=== PATIENT | male | born 1970 | race Caucasian/White ===

== ENCOUNTER 2019-04-30 08:16 | Emergency (ER) | payer OTHER, SELFPAY ==
--- NOTE | ~2019-04-30 | XR_ITS ---
XR hand LT min 3V DATE: 04/30/2019 09:08 INDICATION: Left ear fell on top of him 3 days ago. TECHNIQUE: 3 views COMPARISON: None FINDINGS: No fracture or dislocation, periosteal reaction or bone destruction. IMPRESSION: Negative Reviewed, dictated and finalized at location B. [facility] IMPRESSION: Negative
[2019-04-30 08:49] VITALS: BP 116/83; PULSE 79; RESP 20; TEMP 36.7; O2SAT 97
--- NOTE | 2019-04-30 08:58 | ED.GENADULT ---
HPI - General Adult General Chief complaint: Extremity Injury, Upper Stated complaint: left hand injury Time Seen by Provider: 04/30/19 08:59 Source: patient Mode of arrival: ambulatory Limitations: no limitations History of Present Illness HPI narrative: 48-year-old male patient presents to the [facility] with complaints of left hand pain. Patient states that ladder collapsed on his hand about 3 days ago. Patient states he has been having pain to the left index, middle and ring finger. Specifically to the distal middle finger. Patient states he is able to make a fist but he has had a lot of pain and tenderness to the distal middle finger and hurts even when he tries to put his hand in his pocket. Related Data Allergies Allergy/AdvReac Type Severity Reaction Status Date / Time codeine Allergy Itching Verified 04/30/19 08:55 Review of Systems Review of Systems: Narrative: CONSTITUTIONAL: Denies fever, chills, or sweats. EYES: Denies visual changes, redness, or discharge. ENT: Denies rhinorrhea, congestion, sore throat, or otalgia. CARDIOVASCULAR: Denies chest pain, palpitations, or edema. RESPIRATORY: Denies cough or dyspnea. GASTROINTESTINAL: Denies abdominal pain, nausea, vomiting, or diarrhea. GENITOURINARY: Denies dysuria or hematuria. SKIN: Denies rash or itching. MUSCULOSKELETAL: Denies back pain, joint pain, or myalgia. Positive left hand pain x3 days NEUROLOGIC: Denies headache, numbness, or weakness. PSYCHIATRIC: Denies anxiety or depression. PMFSH Comments At the time of my signature I agree with nursing past medical history, surgical, social, and family history. There is no relevant family history pertinent to the presenting complaint. Exam Narrative: Exam Narrative: GENERAL: Well-appearing, well-nourished, and in no acute distress. HEAD: Normocephalic, atraumatic. EYES: PERRLA and EOMI. ENT: Nares clear, no rhinorrhea or epistaxis. Mucous membranes moist. NECK: Supple. No lymphadenopathy CHEST: Clear to auscultation. No respiratory distress. HEART: Regular rate and rhythm. No murmur heard. Normal peripheral pulses. ABDOMEN: Soft, nontender, nondistended, normal active bowel sounds. EXTREMITIES: The L hand is without obvious asymmetry or deformity when compared to the R hand. No swelling, erythema, atrophy, or obvious deformity. There is a subungual hematoma noted to the left distal middle finger, and a smaller subngual hematome noted to the L distal index finger. There is bruising noted to the distal fingers with a lot of tenderness noted on palpation to the left middle finger DIP joint. There is some bruising noted to the base of the ring finger on the left hand. But no tenderness noted to this area. Normal cascade of fingers. Normal flexion and extension of fingers. FDS and FDP intact aganist restistance. No focal fullness. Pulses and cap refill. SKIN: Warm, dry, no rash. NEURO: No focal deficits. Alert and oriented x3. Course Reevaluation(s) Reevaluation #1: Notify patient that his x-ray is negative for any fracture. Discussed with him we will go ahead and cauterize the nail bed to see if we can get some blood out to relieve some pressure. Discussed with patient that he can take Tylenol ibuprofen for the pain. Patient is requesting ibuprofen because he likes to take the bigger pills rather than a bunch little pills. Discussed patient I can do that for him today. Discussed with patient if he has worsening symptoms such as increased and pain, redness swelling then he will need to come back for reevaluation. Patient verbalized understanding denies any other questions or concerns at this time. Date: 04/30/19 Time: 09:34 Vital Signs Vital signs: Vital Signs Temperature 36.7 C 04/30/19 08:49 Pulse Rate 79 04/30/19 08:49 Respiratory Rate 20 04/30/19 08:49 Blood Pressure 116/83 04/30/19 08:49 Pulse Oximetry 97 04/30/19 08:49 Temperature 36.7 C 04/30/19 08:49 Pulse Rate 79 04/30/19 08
== END 2019-04-30 09:34 | disposition home or self-care (01) ==
PROVIDERS: Emergency Provider Nurse Practitioner Family
DX: L03.012 Cellulitis of left finger (principal)
CPT/HCPCS: 11740; 73130; 99203; G0463

== ENCOUNTER 2022-11-26 15:08 | Emergency (ER) | payer OTHER, SELFPAY ==
--- NOTE | ~2022-11-26 | XR_ITS ---
EXAMINATION: XR sinus min 3V INDICATION: Sinus pressure TECHNIQUE: Five views of the paranasal sinuses are obtained. COMPARISON: None available FINDINGS: There is normal pneumatization of the paranasal sinuses. No definite sinus opacification is identified. The facial bones are unremarkable. IMPRESSION: 1. No definite sinus disease identified. If there is high clinical suspicion for sinus disease, CT of the sinuses is recommended. Reviewed, dictated and finalized at location B. IMPRESSION: 1. No definite sinus disease identified. If there is high clinical suspicion fo r sinus disease, CT of the sinuses is recommended.
[2022-11-26 15:12] VITALS: BP 122/82; PULSE 97; RESP 20; TEMP 36.8; O2SAT 99
--- NOTE | 2022-11-26 15:34 | ED.URI ---
HPI - URI/Sore Throat General Chief Complaint: Upper Respiratory Infection Stated Complaint: Sinus Pain Time Seen by Provider: 11/26/22 15:30 Source: patient, RN notes reviewed and old records reviewed Mode of arrival: ambulatory Limitations: no limitations History of Present Illness HPI Narrative: 52 year old male presents to express care with complaints of sinus congestion and pain to sinus area with some pressure in ears especially right since last night. Patient reports that he has had sinus problems for years and typically has sinus headaches at least twice a week if not more frequently. Patient has been using Flonase nasal spray and he also uses some Advil cold and sinus medications. Patient reports that he has had x-ray in past at the [facility] but was told nothing wrong. Patient requests x-ray today to evaluate if anything noted abnormal. MD elicited complaint: rhinorrhea, nasal congestion, sinus pain and other (headache, and ear pressure especially right) Pertinent past history: sinusitis, seasonal allergies and other (sinus problems) Pain scale (0-10): 7 Able to tolerate fluids by mouth: Yes Treatments prior to arrival: other (Flonase and Advil cold and sinus) Related Data Home Medications Medication Instructions Recorded Confirmed metoprolol succinate 25 mg 25 mg PO DAILY 11/26/22 11/26/22 tablet,extended release 24 hr rosuvastatin 10 mg tablet 10 mg PO DAILY 11/26/22 11/26/22 Allergies Allergy/AdvReac Type Severity Reaction Status Date / Time codeine Allergy Intermediate Hives Verified 11/26/22 15:22 Review of Systems Review of Systems: CONSTITUTIONAL: Denies malaise, chills, sweats, or fever. EYES: Denies visual changes, redness, or discharge. ENT: Reports rhinorrhea, congestion, sinus pain, otalgia no sore throat. CARDIOVASCULAR: Denies chest pain, palpitations, or edema. RESPIRATORY: Reports cough dry at times.? Denies dyspnea. GASTROINTESTINAL: Denies abdominal pain, nausea, vomiting, diarrhea SKIN: Denies rash or itching. MUSCULOSKELETAL: Denies myalgia. NEUROLOGIC: Frontal headache. All systems reviewed & are unremarkable except as noted in HPI and below PMFSH Past Medical History Medical History (Updated 11/28/22 @ 00:00 by Tim Grove) History of sinus problem Hyperlipidemia Hypertension Surgical History Surgical History (Updated 11/27/22 @ 20:26 by Stacy Conner NP) H/O: knee surgery History of tonsillectomy Family History Family History (Updated 07/16/19 @ 09:37 by LADONNA Qureshi) Mother Acute myocardial infarction Social History Social History (Updated 11/27/22 @ 20:28 by Stacy Conner NP) Smoking status: Never smoker Alcohol intake: former Alcohol use details: social use in past Substance use: never Living arrangements: with family Additional occupation/education comments: retired and now works for [employer] Gender identity (if verbalized by the patient): Male Comments At time of signature, agree with nursing past medical, surgical, social and family history. There is no relevant family history pertinent to the presenting complaint Exam Narrative: GENERAL: Well-appearing, well-nourished, and in no acute distress. HEAD: Normocephalic EYES: PERRLA, conjunctivae clear ENT: Nares clear, turbinates edematous and erythematous, clear discharge.facial sinus pressure and frontal headache, Mucous membranes moist. TM pearly knox with dull light reflex bilaterally; no tragal tenderness. Oropharynx erythematous without lesions. Tonsils not present and throat without exudate, no drooling, no hoarseness, no trismus, uvula midline. NECK: Supple. No lymphadenopathy CHEST: Clear to auscultation, breath sounds equal. No wheezing, rhonchi, rales, or stridor. No respiratory distress, speaks in full sentences. occasional dry cough, SAO2 99% on room air HEART: Regular rate and rhythm. No murmur heard.
== END 2022-11-26 16:27 | disposition home or self-care (01) ==
PROVIDERS: Emergency Provider Registered Nurse; PCP Family Medicine
DX: J32.9 Chronic sinusitis, unspecified (principal); E78.5 Hyperlipidemia, unspecified; I10 Essential (primary) hypertension
CPT/HCPCS: 70220; 99203; G0463

== ENCOUNTER → 2022-12-20 13:41 | Outpatient (CLI) | payer OTHER, SELFPAY ==
--- NOTE | ~2022-12-20 | CT_ITS ---
EXAMINATION: CT sinus wo con DATE: 12/20/2022 13:50 INDICATION: Chronic sinusitis, unspecified TECHNIQUE: Computed tomography (CT) of the paranasal sinuses was performed without intravenous contra st. The dose-length product (DLP) was 411.72 mGy-cm. Iterative reconstruction was used. COMPARISON: None FINDINGS: There is normal development and pneumatization of the paranasal sinuses. The frontal, sphen oid, ethmoid, and maxillary sinuses are clear. The bilateral ostiomeatal complexes are patent. Visual ized soft tissues are unremarkable. IMPRESSION: 1. Unremarkable sinus CT. Reviewed, dictated and finalized at location L. IMPRESSION: 1. Unremarkable sinus CT.
== END ==
PROVIDERS: PCP Otolaryngology; Visit Provider Otolaryngology
DX: J32.9 Chronic sinusitis, unspecified (principal)
CPT/HCPCS: 70486

== ENCOUNTER 2023-10-20 13:00 | Emergency (ER) | payer OTHER, SELFPAY ==
[2023-10-20 13:10] VITALS: BP 120/82; PULSE 81; RESP 18; TEMP 36.8; O2SAT 98
--- NOTE | 2023-10-20 13:12 | ED.LOWEXIN ---
HPI - Extremity Injury (Lower) General Chief Complaint: Skin/Abscess/Foreign Body Stated Complaint: left ankle sting/swelling Source: patient Mode of arrival: ambulatory Limitations: no limitations History of Present Illness HPI Narrative: 53-year-old male presented for complaint of left ankle itching, redness, and swelling after insect sting 2 days ago. Applying ice and benadryl cream, taking benadryl by mouth. Says the swelling is down from yesterday. Denies significant pain. Denies lip, tongue, or throat swelling, shortness of breath or wheezing. Denies any other skin concerns. Related Data Home Medications Medication Instructions Recorded Confirmed metoprolol succinate 25 mg 25 mg PO DAILY 11/26/22 10/20/23 tablet,extended release 24 hr rifaximin 550 mg tablet (Xifaxan) 550 mg PO DAILY 10/20/23 10/20/23 Allergies Allergy/AdvReac Type Severity Reaction Status Date / Time codeine Allergy Intermediate Hives Verified 10/20/23 13:08 Review of Systems Review of Systems: CONSTITUTIONAL: Denies body aches, fever, chills, or sweats. EYES: Denies visual changes, redness, or discharge. ENT: Denies rhinorrhea, congestion CARDIOVASCULAR: Denies chest pain, palpitations, or edema. RESPIRATORY: Denies cough or dyspnea. GASTROINTESTINAL: Denies abdominal pain, nausea, vomiting, or diarrhea. SKIN: reports swelling and itching from insect sting MUSCULOSKELETAL: Denies back pain, joint pain, or myalgia. NEUROLOGIC: Denies headache PMFSH Past Medical History Medical History History of sinus problem Hyperlipidemia Hypertension Surgical History Surgical History H/O: knee surgery History of tonsillectomy Family History Family History Mother Acute myocardial infarction Social History Social History Smoking status: Never smoker Alcohol intake: former Alcohol use details: social use in past Substance use: never Living arrangements: with family Additional occupation/education comments: retired and now works for [employer] Gender identity (if verbalized by the patient): Male Comments At time of signature, I have reviewed and agree with nursing past medical, surgical, social and family history unless otherwise noted. Please see nursing chart for further information. There is no relevant family history pertinent to the presenting complaint Exam Narrative: GENERAL: Well-appearing EYES: conjunctivae clear, and EOMI. ENT: Mucous membranes moist. Oropharynx without edema, erythema or lesions. CHEST: Clear to auscultation. HEART: Regular rate and rhythm. SKIN: Warm, dry. Left medial ankle with mild swelling and minimal erythema noted consistent with localized reaction to insect sting. No fluctuance or warmth. CMS intact. NEURO: Alert and oriented x3. Course Course Emergency Course: Patient is aware of diagnosis, understands and agrees to treatment plan. Anticipatory guidance given. Patient agrees to follow-up as directed and is aware of reasons to seek care at the emergency department. Portions of this record may have been created with voice recognition software Level of Care: Express Care Visit Vital Signs Vital signs: Reviewed MDM - Extremity Injury (Lower) MDM Narrative Medical decision making narrative: Discussed physical exam findings c/w localized insect sting reaction, reviewed Rx. Advised supportive measures and signs/symptoms to go to the ER. Pt is appropriate for outpt treatment and f/u. Differential Diagnosis Differential diagnosis: Likely other ( cellulitis, contact dermatitis, allergic dermatitis, eczema, urticaria, insect bites, impetigo) Discharge Plan Discharge Clinical Impression: Local reaction to insect stin
== END 2023-10-20 13:25 | disposition home or self-care (01) ==
PROVIDERS: Emergency Provider Nurse Practitioner Family; PCP Family Medicine
DX: T63.481A Toxic effect of venom of other arthropod, accidental (unintentional), initial encounter (principal); E78.5 Hyperlipidemia, unspecified; I10 Essential (primary) hypertension
CPT/HCPCS: 99213; G0463